=== PATIENT | female | born 1985 | race Caucasian/White ===

== ENCOUNTER 2020-06-29 19:03 | Inpatient (IN) ==
[2020-06-29] MEDS ORDERED: OXYTOCIN 30 UNITS/500 ML BAG IV PRN ×2 (19:10→20:35)
[2020-06-29] MEDS ORDERED: LACTATED RINGER'S 1,000 ML IV PRN (19:10)
--- NOTE | 2020-06-29 19:26 | History & Physical Report ---
Date of Service June 29, 2020 Assessment & Plan (1) Supervision of elderly multigravida: Admit to L&D, EFM/toco. IV fluids, labs, COVID swab per policy. Thinking she'd like to labor without epidural at this point. History of Present Illness Chief Complaint: labor Primary Care Provider: NO PCP 34yo @ 38 5/7, spontaneous labor. Billy every 2-3 minutes. No ROM, no vaginal bleeding. + movement. complicated by AMA, fibroid uterus, marginal cord insertion - resolved at 33w US, and suboptimal views of right kidney. Transfer of care at 33w from [place]. Allergies Allergy/AdvReac Type Severity Reaction Status Date / Time No Known Allergies Allergy Verified 06/29/20 19:15 Home Medications Medication Instructions Recorded Confirmed Type prenat.vits,obed,jic-ghki-gcbji 1 tab PO DAILY 05/22/20 06/29/20 History Patient History Social History Smoking Status: Never smoker marital status: marital status details: Ernie (39) [phone] Current Living Situation: Spouse Current Living Situation Comment: lives with spouse and children current occupational status: unemployed Review of Systems All systems reviewed & are unremarkable except as noted in HPI & below Physical Exam Physical Exam: SVE 7-8/100/0, bulging membranes. Constitutional: WD/WN, vitals as above Respiratory: normal respiratory effort, lungs clear to auscultation no respiratory distress Cardiovascular: Rate/Rhythm: regular rate and regular rhythm Gastrointestinal (Abdomen): Inspection/Auscultation: abdomen normal to inspection Percussion/Palpation: abdomen soft; abdomen nontender Gravid. No s/s chorio or abruption. Skin: no rashes, warm and dry Psychiatric: A+Ox3, euthymic affect Results & Data ([facility]) Vital Signs (Past 12 Hours) Vital Signs Pulse BP 06/29/20 19:06 88 124/67 Monitoring External Monitor FHT Cat 1 Poole Q 2-3 Coding Level of Care Code None Diagnoses Supervision of elderly multigravida O09.529
--- NOTE | 2020-06-29 20:13 | Delivery Summary ---
Vaginal Delivery Summary Date of Service June 29, 2020 Vaginal Delivery Summary [facility] Vaginal Delivery Summary: Pre-delivery diagnoses: 34yo @ 38 5/7, spontaneous labor, AMA, transfer of care at 33w Post-delivery diagnoses: same Procedure: spontaneous vaginal delivery Surgeon: Tangela Koch DO Complications: none Findings: Viable male . Apgars: 8/9. Weight pending, please see nursery records. Estimated blood loss: 300ml Description of delivery: The patient progressed to complete without anesthesia. She then began to push. She spontaneously vaginally delivered a viable from the cephalic presentation. The head delivered in EL position. No nuchal. The anterior shoulder delivered, followed by the posterior shoulder, followed by the body. The baby was placed on mother's abdomen and a spontaneous cry was heard. Delayed cord clamping was employed, and the cord was doubly clamped and cut. Cord blood was obtained. The placenta was delivered spontaneously intact with a 3-vessel cord. The uterus and vagina were swept of clots and debris. IV pitocin was given. The uterus became firm. The cervix, vagina, and perineum were inspected and no lacerations were noted, except a small abrasion on the perineum, hemostatic and patient declined repair. Excellent hemostasis was observed. The mother and baby are recovering in stable and good condition in the room. Sponge and instrument counts were correct x 2. Tangela Koch DO [facility] Vaginal Delivery Charge Vaginal Delivery Codes: 55187 global code for the antepartum, delivery, and post- Delivery Type Details: [facility]
[2020-06-29] MEDS ORDERED: HYDROCORTISONE ACETATE 25 MG SUPP PR PRN (20:35)
[2020-06-29] MEDS ORDERED: oxyCODONE/ACETAMINOPHEN 5mg/325mg TAB PO PRN (20:35)
[2020-06-29] MEDS ORDERED: BENZOCAINE 20% AER SPR 82.5 GM CAN EXT PRN (20:35)
[2020-06-29] MEDS ORDERED: bisacodyL 10 MG SUPP PR PRN (20:35)
[2020-06-29] MEDS ORDERED: SUPERCREAM 0.870% 15 GM JAR EXT PRN (20:35)
[2020-06-29] MEDS ORDERED: DIPHTHERIA/TETANUS/PERTUSSIS 0.5 ML SYR/VIAL IM ONE (20:35)
[2020-06-29] MEDS ORDERED: ACETAMINOPHEN 325 MG TAB PO PRN (20:35)
[2020-06-29] MEDS: IBUPROFEN 600 MG TAB PO PRN (20:46)
[2020-06-29] MEDS: DOCUSATE SODIUM 100 MG CAP PO SCH (20:48)
[2020-06-30] MEDS: IBUPROFEN 600 MG TAB PO PRN ×4 (01:56→23:59)
--- NOTE | 2020-06-30 05:16 | Obstetrical Progress Note ---
Date of Service <Lokesh Hays MD - Last Filed: 06/30/20 07:45> June 30, 2020 Assessment & Plan <Lokesh Hays MD - Last Filed: 06/30/20 07:45> (1) (spontaneous vaginal delivery): Ghada is a 34 y/o female whose was notable for AMA, uterine fibroids, and marginal cord insertion (resolved at 33wk scan) who is now PPD #1 following at 38-5/7 weeks. - Feels well today. Eating well, voiding well, ambulating well. - Pain well controlled with ibuprofen 600mg Q4H PRN. - Routine PPD care -- promote OOB and ambulation - nursing consultant p.r.n. if continued difficulties with latching today - Cleared for d/c today after 2000hr pending peds - After discharge will have [address] Koch Subjective <Lokesh Hays MD - Last Filed: 06/30/20 07:45> Ghada is a 34 y/o female who is now PPD #1 following at 38-5/7 weeks. Reports feeling well overall this morning. Endorses abdominal cramping but well managed on analgesics. Voiding without difficulty. Tolerating meals well and able to ambulate some. Some persistent lochia with some improvement this morning. Breast feeding - does note that baby is having trouble latching, thinking about utilizing design and sales consultant to help Review of Systems Denies fever, chills, sweats Denies shortness of breath, difficulty breathing, chest pain, palpitations, chest pressure. Denies breast pain. Denies dysuria. Denies headache or changes in vision. Physical Exam <Lokesh Hays MD - Last Filed: 06/30/20 07:45> General: Alert, oriented. No acute distress. Cardiac: Regular rate and rhythm, no murmurs/rubs/gallops. Respiratory: Clear to auscultation bilaterally a/p, no wheezes/rales/rhonchi. No increased work of breathing. Symmetrical chest rise. No respiratory distress. Abdomen: Soft, nontender, nondistended. Bowel sounds present. Uterus: Uterine fundus firm, palpable 2 cm below umbilicus. Lower Extremities: No lower extremity edema or swelling. No deep calf pain. Tate's negative bilaterally. Results & Data ([facility]) <Lokesh Hays MD - Last Filed: 06/30/20 07:45> Vital Signs (Past 12 Hours) Vital Signs Temp Pulse Resp BP 06/30/20 04:35 37 C 73 18 113/65 06/29/20 23:15 36.8 C 77 18 96/53 L 06/29/20 22:08 99 H 109/56 L 06/29/20 21:37 77 107/62 06/29/20 21:22 80 109/57 L 06/29/20 21:07 75 110/58 L 06/29/20 20:52 106/65 06/29/20 20:37 84 111/58 L 06/29/20 20:22 93 H 108/57 L 06/29/20 20:20 93 H 107/60 06/29/20 19:24 36.9 C 88 20 124/67 06/29/20 19:06 88 124/67 <Tangela Koch DO - Last Filed: 06/30/20 08:24> Co-Signing Physician Notes Resident Physician Supervision Note: I was present with Dr. Hays during the history and exam. I discussed the case with the resident and agree with the findings and plan as documented in the note. Any exceptions or clarifications are listed here: PPD#1 doing well. No concerns. Desires discharge tonight. Documented By: Tangela Koch DO Resident Activity Tracking <Lokesh Hays MD - Last Filed: 06/30/20 07:45> Resident Involvement: Resident Care Provided Care Provided: [facility] Medicine and OB Delivery
[2020-06-30 06:22] LABS: Hematocrit (blood only) 30.7 % (37-47); Hemoglobin 10.6 g/dL (12.0-16.0)
[2020-06-30] MEDS: PRENATAL VITAMIN 1 TAB PO SCH (08:49)
[2020-06-30] MEDS: DOCUSATE SODIUM 100 MG CAP PO SCH ×2 (08:49→19:49)
[2020-06-30] MEDS ORDERED: bisacodyL 5 MG TABEC PO SCH (20:00)
--- NOTE | 2020-07-01 05:45 | Obstetrical Progress Note ---
Date of Service <Lokesh Hays MD - Last Filed: 07/01/20 06:30> July 01, 2020 Assessment & Plan <Lokesh Hays MD - Last Filed: 07/01/20 06:30> (1) (spontaneous vaginal delivery): Ghada is a 34 y/o female whose was notable for AMA, uterine fibroids, and marginal cord insertion (resolved at 33wk scan) who is now PPD #2 following at 38-5/7 weeks. - Feels well today. Eating well, voiding well, ambulating well. - Pain well controlled with ibuprofen 600mg Q4H PRN. - Routine PPD care -- promote OOB and ambulation - senior financial consultant p.r.n. - Anticipate d/c today - After discharge will have [address] Koch Subjective <Lokesh Hays MD - Last Filed: 07/01/20 06:30> Ghada is a 34 y/o female whose was notable for AMA, uterine fibroids, and marginal cord insertion (resolved at 33wk scan) who is now PPD #2 following at 38-5/7 weeks. Reports feeling well overall this morning. Some abdominal cramping continues but is well managed on analgesics. Voiding without difficulty. Tolerating meals well and able to ambulate some.Some persistent lochia with some improvement this morning. Breast feeding. Review of Systems Denies fever, chills, sweats Denies shortness of breath, difficulty breathing, chest pain, palpitations, chest pressure. Denies breast pain. Denies dysuria. Denies headache or changes in vision. Physical Exam <Lokesh Hays MD - Last Filed: 07/01/20 06:30> General: Alert, oriented. No acute distress. Cardiac: Regular rate and rhythm, no murmurs/rubs/gallops. Respiratory: Clear to auscultation bilaterally a/p, no wheezes/rales/rhonchi. No increased work of breathing. Symmetrical chest rise. No respiratory distress. Abdomen: Soft, nontender, nondistended. Bowel sounds present. Uterus: Uterine fundus firm, palpable 2 cm below umbilicus. Lower Extremities: No lower extremity edema or swelling. No deep calf pain. Tate's negative bilaterally. Results & Data ([facility]) <Lokesh Hays MD - Last Filed: 07/01/20 06:30> Vital Signs (Past 12 Hours) Vital Signs Temp Pulse Resp BP Pulse Ox 06/30/20 23:50 37.2 C 83 16 94/56 L 97 06/30/20 19:55 36.7 C 81 16 112/69 <Margaret Garcia MD, FACOG - Last Filed: 07/01/20 08:10> Co-Signing Physician Notes Resident Physician Supervision Note: I was present with Dr. Campa during the history and exam. I discussed the case with the resident and agree with the findings and plan as documented in the not e. Any exceptions or clarifications are listed here: [None] Documented By: Margaret Garcia MD, FACOG Resident Activity Tracking <Lokesh Hays MD - Last Filed: 07/01/20 06:30> Resident Involvement: Resident Care Provided Care Provided: Adult Hospital Medicine and OB Delivery
[2020-07-01] MEDS: PRENATAL VITAMIN 1 TAB PO SCH (07:40)
[2020-07-01] MEDS: DOCUSATE SODIUM 100 MG CAP PO SCH (07:40)
[2020-07-01] MEDS: IBUPROFEN 600 MG TAB PO PRN (07:40)
== END 2020-07-01 11:55 | disposition home or self-care (01) | DRG 807 ==
LOC: 4S1 19:03 → OPB 19:03 → 4S1 19:11 → 4S2 22:45

== ENCOUNTER 2022-08-14 06:03 | Inpatient (IN) ==
[2022-08-14] MEDS ORDERED: LIDOCAINE 1% LOCAL 20 ML VIAL INFIL PRN (06:12)
[2022-08-14] MEDS ORDERED: OXYTOCIN 30 UNITS/500 ML BAG IV PRN ×2 (06:12→06:58)
[2022-08-14] MEDS ORDERED: LACTATED RINGER'S 1,000 ML IV PRN (06:12)
[2022-08-14] MEDS ORDERED: OXYTOCIN 30 UNITS/500ML NSS IV ONE (06:16)
--- NOTE | 2022-08-14 06:25 | History & Physical Report ---
Date of Service August 14, 2022 Assessment & Plan (1) Normal labor: Plan: 36yo in active labor. 1. Fetus: Cat 1 2. Labor: Active 3. GBS negative 4. Vitals: WNL (2) Elderly multigravida: History of Present Illness Primary Care Provider: NO PCP at 39w1d presents in active labor. complications: AMA Weekly NST's @ 36 weeks - Declining NSTs Fibroids : at least 2 that are <2.5cm OB Labs: Blood Type O Positive 02/26/22 Antibody Screen NEGATIVE 02/26/22 Hemoglobin 10.5 g/dl (12.0-16.0) L 06/03/22 Hematocrit 30.4 % (37.0-47.0) L 06/03/22 Mean Corpuscular Volume 85.1 fL (80.0-100.0) 02/26/22 Platelet Count 326 K/uL (130-400) 02/26/22 Rubella IgG Antibody Immune (Immune) 02/26/22 Rapid Plasma Reagin Nonreactive (Nonreactive) 02/26/22 Hepatitis B Surface Antigen. NON-REACTIVE (NON-REACTIVE) 02/26/22 Hepatitis C Antibody (EIA) NON-REACTIVE (NON-REACTIVE) 02/26/22 HIV (1&2) Ag and Ab Confirmation NON-REACTIVE (NON-REACTIVE) 02/26/22 Glucose 1 Hour 50 gm Load 115 mg/dl (70-130) 06/03/22 OB Optional Labs: Chlamydia trachomatis RNA Not Detected (NotDetected) 02/26/22 Neisseria gonorrhoeae RNA Not Detected (NotDetected) 02/26/22 Allergies Allergy/AdvReac Type Severity Reaction Status Date / Time No Known Allergies Allergy Verified 08/12/22 15:15 Home Medications Medication Instructions Recorded Confirmed Type prenat.vits,obed,emi-nuuk-uchsa 1 tab PO DAILY 05/22/20 08/12/22 History Patient History Medical History (Updated 08/14/22 @ 06:23 by Walter Tillman MD) History of chicken pox Supervision of elderly multigravida (spontaneous vaginal delivery) Surgical History (Updated 02/17/22 @ 10:00 by Marylin Balderas) No history of previous surgery Family History (Updated 02/17/22 @ 09:52 by Marylin Balderas) Denies family history of Ovarian cancer Breast cancer Colorectal cancer Social History (Updated 02/17/22 @ 09:53 by Marylin Balderas) Smoking Status: Never smoker Do You Dip or Chew Tobacco: No; Hx Alcohol Use: No Hx Substance Use: No Preferred Language: Georgian Communication Ability: Effective Beliefs That Will Affect Care: None marital status: marital status details: Ernie (42) [phone] Current Living Situation: Spouse and Family Current Living Situation Comment: lives with spouse and children, mother, no pets current occupational status: employed current occupation: [employer] Feels Safe at Home: Yes Assistive Devices: None Physical Exam Genitourinary: OB Exam Abdomen: + vertex Manual OB Exam: + cervical dilation 8 cm, + cervical effacement 100%, + station 0 and + amniotic fluid (SROM) clear OB Exam Monitor Tracing: + external FHT monitor used, + external uterine monitor used, + category I and + normal FHT variability; no early decelerations present, no late decelerations present and no variable de celerations Results & Data Vital Signs (Past 12 Hours) Vital Signs Pulse BP 08/14/22 06:14 80 115/59 L Coding Level of Care Code None Diagnoses Normal labor O80; Z37.9 Elderly multigravida O09.529
[2022-08-14] MEDS ORDERED: bisacodyL 10 MG SUPP PR PRN (06:58)
[2022-08-14] MEDS ORDERED: BENZOCAINE 20% AER SPR 82.5 GM CAN EXT PRN (06:58)
[2022-08-14] MEDS ORDERED: DIPHTHERIA/TETANUS/PERTUSSIS Vaccine (Tdap, Age 7+yrs) 0.5mL SYR/VL IM ONE (06:58)
[2022-08-14] MEDS ORDERED: HYDROCORTISONE ACETATE 25 MG SUPP PR PRN (06:58)
--- NOTE | 2022-08-14 08:37 | Delivery Summary ---
DATE OF SERVICE: 08/14/2022 PROCEDURE: Normal spontaneous vaginal delivery. SURGEON: Walter Tillman MD. PREOPERATIVE DIAGNOSES: 1. Single intrauterine at 39 weeks 3 days gestational age. 2. Active labor. 3. Uterine fibroids. POSTOPERATIVE DIAGNOSES: 1. Single intrauterine at 39 weeks 3 days gestational age. 2. Active labor. 3. Uterine fibroids. 4. Status post procedure. ESTIMATED BLOOD LOSS: 200 mL. DRAINS: None. FLUIDS: Continuous lactated Ringer. URINE OUTPUT: None. COMPLICATIONS: None. FINDINGS: Viable male with weight and Apgars pending. INDICATIONS: The patient is a 36-year-old G4, P3, presents in active labor, 8-9 cm dilation. The pa tient had spontaneous rupture of membranes for clear fluid and progressed rapidly in labor to complet e-complete, +2 station, and pushed for approximately 10 minutes to achieve delivery. DESCRIPTION OF PROCEDURE: The patient progressed to 10 cm dilated, 100% effaced, positive 2 station, pushed over intact perineum without anesthesia and delivered a viable male with weight and A pgars as noted above. Head of the delivered in EL position, restituted right transverse. N o nuchal cord was noted. Body and shoulders quickly followed. was noted to be vigorous soon after delivery and 1 minute delayed cord clamping was initiated. Cord was then double clamped and c ut. remained on maternal abdomen. Cord blood was obtained. Attention was then turned to omer of the placenta, which was delivered intact, 3-vessel cord, gentle cord traction. On inspecti on of the perineum, vagina, and cervix, there was noted to be no lacerations. Needle, sponge, and in strument counts were correct at the completion of the case. Both mother and stable in the im mediate post-delivery period. Job ID: [id number]
[2022-08-14] MEDS: FERROUS SULFATE 325 MG TAB PO SCH (08:41)
[2022-08-14] MEDS: DOCUSATE SODIUM 100 MG CAP PO SCH ×2 (08:41→21:01)
[2022-08-14] MEDS: IBUPROFEN 600 MG TAB PO PRN ×3 (08:42→19:40)
[2022-08-14] MEDS: PRENATAL VITAMIN 1 TAB PO SCH (08:42)
[2022-08-14] MEDS: ACETAMINOPHEN 325 MG TAB PO PRN ×2 (13:57→21:02)
[2022-08-15] MEDS: ACETAMINOPHEN 325 MG TAB PO PRN (05:49)
[2022-08-15] MEDS: IBUPROFEN 600 MG TAB PO PRN (05:49)
[2022-08-15 08:07] LABS: Hemoglobin 9.1 g/dl (12.0-16.0); Mean Corpuscular Hemoglobin 28.3 pg (25.0-34.0); Mean Corpuscular Hgb Conc 33.7 g/dL (32.0-36.0); Mean Corpuscular Volume 83.9 fL (80.0-100.0); Mean Platelet Volume 10.5 fL (9.4-12.4); Platelet Count 256 K/uL (130-400); RDW Coefficient of Variation 13.6 % (11.5-14.5); RDW Standard Deviation 41.7 fL (36.4-46.3); Red Blood Count 3.22 M/uL (4.20-5.40); White Blood Count 10.18 K/ul (4.8-10.8)
[2022-08-15] MEDS: PRENATAL VITAMIN 1 TAB PO SCH (08:14)
[2022-08-15] MEDS: DOCUSATE SODIUM 100 MG CAP PO SCH (08:14)
[2022-08-15] MEDS: FERROUS SULFATE 325 MG TAB PO SCH (08:15)
--- NOTE | 2022-08-15 08:42 | Obstetrical Progress Note ---
Date of Service August 15, 2022 Assessment & Plan (1) Normal vaginal delivery: Routine delivery, recovered well, can D/C home today as patient requests. Instructions reviewed and all questions answered. Subjective Ambulation: ambulating normally Voiding: no voiding problems Passing Gas:: Yes Diet Tolerance:: regular diet Lochia:: Small Feeding Type:: breast feeding Physical Exam Constitutional WD/WN, vitals as above Eyes PERRL, conjunctivae normal, anicteric sclerae Neck normal visual inspection Respiratory normal respiratory effort and able to speak in complete sentences; no respiratory distress and no labored breathing Cardiovascular Rate/Rhythm: regular rate and regular rhythm Extremities: + edema (very mild) Chest (Breasts) Chest: normal inspection of chest Gastrointestinal (Abdomen) Inspection/Auscultation: abdomen normal to inspection Soft, postgravid Psychiatric A+Ox3, euthymic affect Genitourinary OB Exam Abdomen: + fundal height Fundus: + firm and + relation to umbilicus (fundus just below umbilicus); not tender Results & Data Vital Signs (Past 12 Hours) Vital Signs Temp Pulse Resp BP Pulse Ox O2 Del Method 08/15/22 05:15 97.5 F L 80 18 95/58 L 99 Room Air 08/15/22 00:45 98.2 F 81 16 106/61 98 Room Air
[2022-08-15] MEDS ORDERED: bisacodyL 5 MG TABEC PO SCH (20:00)
== END 2022-08-15 14:15 | disposition home or self-care (01) | DRG 807 ==
LOC: OPB 06:03 → 4S1 06:09 → 4E2 10:21